=== PATIENT | male | born 1950 | race Caucasian/White ===

== ENCOUNTER 2024-09-02 05:21 | Observation (INO) ==
--- NOTE | 2024-07-29 11:18 | PAT Medication Instructions ---
Medication Instructions Date of Service July 29, 2024 Home Medications atorvastatin 10 mg tablet 10 mg PO HS levothyroxine 25 mcg tablet 25 mcg PO QAM Take morning of surgery With a small sip of water, OTHERWISE NOTHING TO EAT OR DRINK AFTER MIDNIGHT: levothyroxine 25 mcg tablet 25 mcg PO QAM Take evening before surgery atorvastatin 10 mg tablet 10 mg PO HS Other Notes If you have any questions please call us at [phone] or [phone] or [phone] or [phone]
--- NOTE | 2024-08-07 11:36 | Anesthesiology Consultation ---
Date of Service August 07, 2024 Assessment & Plan (1) Encounter for pre-operative examination: Plan - awaiting chest CT and PCP clearance. - workload note sent to [place] PCP who ordered CT for further evaluation of abnormal CXR, patient aware per [place] PCP workload note. Surgeon's office is aware. Chart Review Chart Review: Pending: Refer to Additional Notes / Consult section and Patient seen in Pre Admission Testing Teaching & Discussion Pre-Anesthesia Teaching/Discussion Notes: Instructed NPO after midnight before surgery, except medications with 15 cc of water. Medication instructions provided according to the PAT guidelines. History Surgery Operation Date: 09/02/24 12:00 Proposed Procedures p Left Anterior Total Hip Arthroplasty - Theron Rodriguez, Height/Weight Height: 5 ft 11 in Weight: 86.7 kg Allergies Allergy/AdvReac Type Severity Reaction Status Date / Time No Known Drug Allergies Allergy Unknown . Verified 07/25/24 14:48 Medications Home Medications Medication Instructions Recorded Confirmed Last Taken atorvastatin 10 mg tablet 10 mg PO QPM 07/25/24 08/07/24 Unknown levothyroxine 25 mcg tablet 25 mcg PO QPM 07/25/24 08/07/24 Unknown Past Medical History Medical History (Updated 08/07/24 @ 12:07 by Jordana Soto PA-C) Degenerative joint disease of left hip History of palpitations occasional "missed beats- told not to worry about it" Hx of colonic polyps Hyperlipidemia Hypothyroidism Internal hemorrhoids Patient denies h/o stroke, seizures, heart attack, heart failure, DM, HTN, blood clots/DVTs or blood transfusions. Exercise / Class Metabolic Activity II 4-5 Yardwork/Stairs/Walk up hill (denies chest discomfort or shortness of breath with one flight of stairs) Past Family History Family History Brother Atrial fibrillation Father Family history of diabetes mellitus Other Diabetes No family history of adverse response to anesthesia Denies family history of Ovarian cancer Prostate cancer Myocardial infarction Breast cancer Colorectal cancer Past Surgical History Surgical History (Updated 08/07/24 @ 11:56 by Jordana Soto PA-C) History of herniorrhaphy left inguinal & abdominal-under spinal instead of general anesthesia by patient request History of tooth extraction Hx of colonoscopy with polypectomy S/P vasectomy Past Anesthesia History No Hx of Anesthesia Complications and No Family Hx of Anesthesia Complications History of PONV No Hx of PONV and No Hx of Motion Sickness Social History Smoking Status: Never smoker Do You Dip or Chew Tobacco: No Hx Alcohol Use: Yes Alcohol type: wine and hard liquor alcohol intake frequency: other Alcohol Intake Frequency Comment: once per month Hx Substance Use: No substance use type: does not use Review of Systems Snoring, with h/o waking gasping in the past with resolution; denies witnessed apneas. Patient denies chest pain, shortness of breath, dyspnea on exertion, reflux, fever, chills, cough, wheezing, dizziness, lightheadedness or palpitations. Physical Exam Vital Signs Vitals BP 151/86 P 58 TEMP 98.4 SP02 98% on RA RESP 19 Physical Patient resting comfortably in chair in no acute distress, alert and oriented, responding appropriately throughout visit Full cervical extension range of motion without pain TMD 3.5 finger breadths Mallampati Score 2 Dentition: several caps/crowns, denies chipped or loose teeth, implants or bridges Lungs: normal respiratory effort. Good air movement, clear throughout to auscultation, no adventitious breath sounds Cardiac: regular rate and rhythm, no murmurs noted Carotid arteries: negative bruit bilat Lab Results Anesthesia Preop Results Results Anesthesia Widget: WBC 6.71 K/ul (4.8-10.8) 07/08/24 Hgb 14.4 g/dl (14.0-18.0) 07/08/24 Hct 43.1 % (42.0-52.0) 07/08/24 Plt 305 K/uL (130-400) 07/08/24 Na 140 mmol/L (136-145) 07/08/24 K 4.1 mmol/L (3.5-5.1) 07/08/24 Cl 105 mmol/L (98-107) 07/08/24 CO2 29 mmol/L (21-32) 07/08/24 BUN 16 mg/dl (6-23) 07/08/24 Creat 0.95 mg/dl (0.6-1.4) 07/08/24 Glucose Level 82 mg/dl (70-99(Fasting)) 07/08/24 PT 10.9 Seconds (9.0-12.0) 08/07/24 PTT 30 Seconds (21-31) 08/07/24 INR 1.0 (0.9-1.1) 08/07/24 TSH 4.197 uIu/ml (0.300-4.500) 07/08/24 Blood Type O Positive 08/07/24 Antibody Screen NEGATIVE 08/07/24 Testing Electrocardiogram Date: 08/07/24 Sinus bradycardia with PVCs, rate 59 bpm Chest X-Ray Date: 08/07/24 Large well defined opacity is seen in the right mid and lower lung zone likely represent suspicious lung mass / suspicious lung metastasis with No evidence of air fluid level and No evidence of calcification. Advice: CT Thorax for further radiological evaluation. Other Testing Head MRA 02/29/24 Unremarkable MR angiogram of the brain.
--- OUTSIDE RECORDS SUMMARY | 2024-09-02 05:26 | External Medical Summary | Continuity of Care Document ---
Author Name Unknown Organization [facility] Address [address] [place] [address] [place] [id number] Care Team Providers Care Manager Department Name Role Phone Humera Ugalde Primary Care Physician [phone] Encounter [facility] [id number] Date(s): 08/20/24 - 08/20/24 [facility] [id number], [place] [address]- [phone] Discharge Disposition: Home or Self Care Attending Physician: MD Weiner Michael Referring Physician: NATHANIEL Ugalde Rebecca Linn Allergies, Adverse Reactions, Alerts No Known Medication Allergies Medications doxycycline hyclate 100 mg oral capsule Start: 01/09/17 12:02:00 PM EDT, 2 cap, PO, ONCE, Disp# 2 cap, Refills: 0, Pharmacy: [id number] Start Date: 01/09/17 Status: Ordered Problem List Condition Confirmation Course Effective Dates Status Health St atus Informant Sore throat Confirmed Active Sore throat Confirmed Active Acute pharyngitis Confirmed Active Acute URI Confirmed Active Epistaxis Confirmed Active Tick bite of left shoulder Confirmed Active Social History Social History Type Response Smoking Status Never smoked cigaret gifty Sex Male Sex Representation Male (finding) Patient Care team information Care Team Personnel Name: NATHANIEL Ugalde Rebecca Linn Position: Referring Member Role: Primary Care Provider Address: [address] [place] [address] Care Team Related Persons Name: KARISHMA WOODARD
--- OUTSIDE RECORDS SUMMARY | 2024-09-02 05:26 | External Medical Summary | Continuity of Care Document ---
Author Name Unknown Organization [facility] [address] [place] [address] FIONA VANG [id number] Care Team Providers Care Harvest Contractor Name Role Phone Humera Ugalde Primary Care Physician [phone] Encounter [facility] [id number] Date(s): 08/23/24 - 08/23/24 [facility] [address] [place] [address] [phone] Encounter Diagnosis Other nonspecific abnormal finding of lung field(Discharge Diagnosis) - 08/23/24 Discharge Disposition: Home or Self Care Attending Physician: MD Goode Nicole Paige Referring Physician: MD Weiner Michael Allergies, Adverse Reactions, Alerts No Known Medication Allergies Medications doxycycline hyclate 100 mg oral capsule Start: 01/09/17 12:02:00 PM EDT, 2 cap, PO, ONCE, Disp# 2 cap, Refills: 0, Pharmacy: [id number] Start Date: 01/09/17 Status: Ordered Problem List Condition Confirmation Course Effective Dates Status Health atus Informant Sore throat Confirmed Active Sore throat Confirmed Active Acute pharyngitis Confirmed Active Acute URI Confirmed Active Epistaxis Confirmed Active Tick bite of left shoulder Confirmed Active Diagnosis Diagnosis Type Effective Dates Health Status Clinical Service Informant Other nonspecific abnormal finding of lung field Discharge Diagnosis 08/23/24 Non-Specified Social History Social History Type Response Smoking Status Never smoked cigaret gifty Sex Male Sex Representation Male (finding) Patient Care team information Care Team Personnel Name: NATHANIEL Ugalde Rebecca Linn Position: Referring Member Role: Primary Care Provider Address: [address] [place] [address] Care Team Related Persons Name: KARISHMA WOODARD
[2024-09-02] MEDS: LR 500ML BOLUS, THEN 15ML/HR IV SCH (05:50)
[2024-09-02] MEDS: ACETAMINOPHEN 500 MG TAB PO SCH ×2 (05:52→13:40)
[2024-09-02] MEDS: FAMOTIDINE 20 MG TAB PO SCH (05:52)
[2024-09-02] MEDS: GABAPENTIN 300 MG CAP PO SCH (05:52)
[2024-09-02] MEDS: dexAMETHasone**PF** 10 MG/ML VIAL IV SCH (05:52)
[2024-09-02] MEDS: LR 60ML/HR IV SCH (06:14)
[2024-09-02] MEDS ORDERED: BUPIVACAINE 0.5 % 5 MG/1 ML PF 10ML VIAL ONE (06:23)
--- NOTE | 2024-09-02 06:35 | History & Physical Bridge Note ---
Date of Service September 02, 2024 History & Physical Bridge Note I have examined the patient, reviewed the History & Physical and in the interval since the performance of the History & Physical I have noted the following changes of clinical significance: no changes noted
[2024-09-02] MEDS ORDERED: MIDAZOLAM HCL 1 MG/ML 2ML VIAL ONE (06:38)
[2024-09-02] MEDS ORDERED: fentaNYL citrate PF 100 MCG/2 ML VIAL ONE (06:38)
[2024-09-02] MEDS ORDERED: fentaNYL citrate PF 100 MCG/2 ML VIAL IV PRN (06:44)
[2024-09-02] MEDS ORDERED: ATROPINE SULFATE 0.1 MG/ML 10ML SYR IV PRN (06:44)
[2024-09-02] MEDS ORDERED: ONDANSETRON INJ 2 MG/ML 2 ML VIAL IV PRN ×2 (06:44→09:26)
[2024-09-02] MEDS ORDERED: ePHEDrine sulfate 50 MG/ML AMP IV PRN (06:44)
[2024-09-02] MEDS ORDERED: PROMETHAZINE HCL 6.25 MG in SODIUM CHLORIDE 0.9% 50 ML IV PRN (06:44)
[2024-09-02] MEDS: TRANEXAMIC ACID 1,000 MG **IV Pre-op IV SCH (06:45)
[2024-09-02] MEDS ORDERED: PROPOFOL IV EMULSION 10 MG/ML 20 ML VIAL IV ONE (06:50)
[2024-09-02] MEDS: ceFAZolin 2000MG 2,000 MG/15 ML SYR IV SCH ×2 (07:02→15:57)
[2024-09-02] MEDS: ORTHO JOINT ANESTHETIC ONE (07:46)
[2024-09-02] MEDS: ROPIV 0.5% 246mg, Ketorolac 30mg, EPINEPHrine 0.5mg in NSS INFIL SCH (07:46)
[2024-09-02] MEDS: TRANEXAMIC ACID 1,000 MG **IV Intra-op IV SCH (08:04)
--- NOTE | 2024-09-02 08:07 | Operative Report ---
PG Post Operative Report Pre & Post Diagnosis Operation Date: 09/02/24 07:00 Pre-Op Diagnosis: Left Hip Arthritis Post-Op Diagnosis: Left Hip Arthritis I identified the patient and participated in the time-out.: Yes Procedure Operation Date: 09/02/24 07:00 Actual Procedures p Left Anterior Total Hip Arthroplasty, Uncemented(Left) - Theron Rodriguez DO Surgeon Theron Rodriguez DO Engineering Mathematician Luis Lira PA-C Estimated Blood Loss 100 Findings Consistent with Post-Op Diagnosis Specimens Left femoral head Description of Procedure Implants used I used a ZimmerBiomet total hip arthroplasty system with a size 7.5 standard offset Avenir Complete stem, a 34 mm G7 cup with a 25mm screw, an E1 polyethylene liner, a 40 mm ceramic head with a +3.5 neck. Ortega arrived at the hospital for the above procedure. He was seen in the preoperative holding area and the operative extremity was identified and signed. He was given a spinal anesthetic, a preoperative antibiotic, and TXA. He was then taken back to the operating room and laid on the table in the supine position. He was given basic sedation. The operative leg was secured to a Puristst leg positioner. The hip was then prepped and draped in sterile fashion. A timeout was done and the patient and the operative extremity was properly identified. An anterior approach was used. Dissection was taken down through the fascia and the tensor muscle belly was retracted laterally and the rectus was retracted medially. The circumflex vessels were identified and ligated. The capsule was then incised and tagged for later repair. The femoral neck was then cut and the femoral head was removed. The acetabulum was exposed. Time was spent doing a complete circumferential labral release. Sequential reaming of the acetabulum up to a size 53 reamer was done. Final reamings were done under fluoroscopy to ensure appropriate version. A Biomet 54 mm G7 cup was then impacted into place. A single 25 mm screw was placed. The E1 polyethylene liner was then snapped into place. Surrounding soft tissues were then injected with 100 cc of an orthopedic pain control cocktail. The proximal femur was then exposed. Sequential broaching up to a size 7.5 broach was done. Off that broach a size 40 head with a +3.5 neck was trialed. The hip was reduced and fluoroscopic images showed anatomic alignment of the implants in acceptable length. The broach was removed. The final size 7.5 standard offset Avenir Complete stem was then impacted into place. A ceramic 40 mm head with a +3.5 neck was then impacted onto the stem and the hip was reduced. Final fluoroscopic images showed anatomic alignment of the hip. The capsule was then closed with #1 Vicryl suture. A dilute betadyne lavage was then done for 3 minutes. The joint was then irrigated with normal saline solution. The fascia was closed with #1 PDS suture. Skin was closed with 2-0 Vicryl, tony, and a Silverlon dressing. He was then transferred to a hospital bed and taken to the post anesthesia care unit in stable condition. He tolerated the procedure well. Luis Lira PA-C, was present for the entire procedure. He was critical for patient positioning, prepping, draping, retraction exposure, wound closure and application of sterile dressing. I attest to the content of the Intraoperative Record and any orders documented therein. Any exceptions are noted below.
--- NOTE | 2024-09-02 09:14 | XRay Report ---
XR hip 1V LT w pelvis CLINICAL HISTORY: Postoperative evaluation. COMPARISON: Left hip radiographs August 07, 2024. FINDINGS: Alignment of the total left hip arthroplasty is anatomic. There is no periprosthetic fract ure or unexpected radiopaque foreign body. There are skin tony. IMPRESSION: Expected findings following total left hip arthroplasty. ACT 112: Negative or not required by law. Electronically signed by: Rodolfo Ugarte M.D. 09/02/2024 9:13 AM
[2024-09-02] MEDS ORDERED: bisacodyL 10 MG SUPP PR PRN (09:26)
[2024-09-02] MEDS ORDERED: oxyCODONE HCL IR 5 MG TAB (IMMEDIATE RELEASE) PO PRN (09:26)
[2024-09-02] MEDS ORDERED: HYDROmorphone INJ 0.5 MG/0.5 ML SYR IV PRN (09:26)
[2024-09-02] MEDS ORDERED: NALOXONE HCL 0.4 MG/1 ML VIAL/CARP IV PRN (09:26)
[2024-09-02] MEDS ORDERED: METOCLOPRAMIDE HCL INJ 5 MG/ML 2 ML VIAL IV PRN (09:26)
[2024-09-02] MEDS ORDERED: MAGNESIUM HYDROXIDE SUSP 30 ML UDC PO PRN (09:26)
[2024-09-02] MEDS: DOCUSATE SODIUM 100 MG CAP PO SCH (10:39)
[2024-09-02] MEDS: KETOROLAC TROMETHAMINE 15 MG/ML VIAL IV SCH (10:39)
[2024-09-02] MEDS: MULTIVITAMIN TAB PO SCH (10:39)
--- NOTE | 2024-09-02 14:43 | Fluoroscopy Report ---
FL hip LT 1V CLINICAL HISTORY: LT ANTERIOR HIP COMPARISON STUDY: [Radiograph August 07, 2024. FLUOROSCOPY TIME: 11 seconds. Ka,r: 1.1479 mGy FLUOROSCOPIC IMAGES: 1 FINDINGS: Fluoroscopy was provided during anterior total left hip arthroplasty. Alignment is anatomic . Hardware is intact. No fractures are identified by fluoroscopy. There is an acetabular screw. IMPRESSION: Fluoroscopy provided anterior total left hip arthroplasty. ACT 112: Negative or not required by law. Electronically signed by: Rodolfo Ugarte M.D. 09/02/2024 2:41 PM
--- NOTE | 2024-09-02 14:49 | Anesthesiology Progress Note ---
Date of Service September 02, 2024 Anesthesia Post Procedure Vital Signs Vital Signs: Temp Pulse Pulse Resp BP BP Pulse Ox 09/02/24 12:20 36.7 C 71 16 150/84 H 99 09/02/24 11:20 36.3 C L 64 16 139/83 98 09/02/24 10:22 36.4 C L 75 16 141/89 H 93 09/02/24 09:49 36.7 C 68 16 143/85 H 98 09/02/24 09:20 36.4 C L 63 17 145/79 H 98 09/02/24 09:05 36.4 C L 72 14 135/83 98 09/02/24 08:55 75 22 143/77 H 100 09/02/24 08:45 79 15 134/79 100 09/02/24 08:35 93 H 11 L 130/79 100 09/02/24 08:27 36.3 C L 100 H 16 140/67 98 09/02/24 06:03 36.5 C 79 20 179/81 H 99 O2 Del Method O2 Flow Rate 09/02/24 12:20 Room Air 09/02/24 11:20 Room Air 09/02/24 10:22 Room Air 09/02/24 09:49 Room Air 09/02/24 09:20 Room Air 09/02/24 09:05 Room Air 09/02/24 08:55 Room Air 09/02/24 08:45 Oxymask 4 09/02/24 08:35 Oxymask 6 09/02/24 08:27 Oxymask 10 09/02/24 06:03 Room Air Pain Intensity Left Hip: Pain Intensity: 3 Transfer of Care Handoff Completed per policy Notes Mental Status: alert / awake / arousable and participated in evaluation Patient Amnestic to Procedure: Yes Nausea / Vomiting: adequately controlled Pain: adequately controlled Airway Patency, RR, SpO2: stable & adequate BP & HR: stable & adequate Hydration State: stable & adequate Neuraxial Anesthesia: was administered and sensory block is resolving Anesthetic Complications: no major complications apparent and Pt Satisfied with anesthetic care
[2024-09-02] MEDS: SENNA 8.6 MG TAB PO SCH (21:18)
[2024-09-02] MEDS: ATORVASTATIN 10 MG TAB PO SCH (21:18)
[2024-09-02] MEDS: ASPIRIN 81 MG ECTAB PO SCH (21:18)
[2024-09-02] MEDS: LEVOTHYROXINE SODIUM 25 MCG TABLET PO SCH (21:18)
[2024-09-03 07:36] VITALS: BP 123/79; PULSE 65; RESP 16; TEMP 97.7; O2SAT 99
[2024-09-03] MEDS: dexAMETHasone 4 MG TAB PO SCH (07:45)
--- NOTE | 2024-09-03 12:44 | Orthopedic Progress Note ---
Date of Service September 03, 2024 Assessment & Plan (1) Status post left hip replacement: Assessment: Status post left total hip arthroplasty. Plan: Overall, he is doing quite well today with good pain control left hip. He will work with physical therapy later this morning to work on ambulation and range of motion exercises. He is on aspirin for DVT prophylaxis with the use of HERO hoses. He can be discharged home later this morning pending formal physical therapy evaluation recommendation. Prescription sent to pharmacy with verbal confirmation. His Silverlon should remain in place for 7 days. After 7 days, he may discharge the Silverlon dressing and leave it open to air. He will follow-up with orthopedics in 2 weeks for continued postoperative management or sooner if needed. He verbalized understanding and agrees with this plan. Subjective . Ortega was seen and evaluated this morning resting comfortably no apparent distress. He notes he has good pain control to the left hip. He has been up and out of bed without any significant issues. He has yet to be seen by physical therapy this morning. He denies any concerns with surgical incision site. Denies any active bleeding, discharge, or signs of infection. Denies any other concerns today. Review of Systems All systems reviewed & are unremarkable except as noted in HPI & below. Physical Exam . On physical examination of the left hip, his dressing is clean, dry, and intact with no signs of active bleeding, discharge, or signs of infection. Slight tenderness to palpation adjacent to the surgical site. Leg is out full extension. Limited range of motion secondary to postoperative stiffness soreness. Calf soft nontender to palpation. No guarding present. Intact pl antarflexion dorsiflexion of left ankle. +2 DP and PT pulse. Less than 2- second capillary refill. Normal sensation. Neurovascular intact. Results & Data Results & Data Laboratory Results . Diagnostic Findings . Hip X-Ray 09/02/24 07:00 FL hip LT 1V CLINICAL HISTORY: LT ANTERIOR HIP COMPARISON STUDY: [Radiograph August 07, 2024. FLUOROSCOPY TIME: 11 seconds. fab [place]: 1.1479 mGy FLUOROSCOPIC IMAGES: 1 FINDINGS: Fluoroscopy was provided during anterior total left hip arthroplasty. Alignment is anatomic. Hardware is intact. No fractures are identified by fluoroscopy. There is an acetabular screw. IMPRESSION: Fluoroscopy provided anterior total left hip arthroplasty. ACT 112: Negative or not required by law. Electronically signed by: Rodolfo Ugarte M.D. 09/02/2024 2:41 PM Hip/Pelvis X-Ray 09/02/24 08:29 XR hip 1V LT w pelvis CLINICAL HISTORY: Postoperative evaluation. COMPARISON: Left hip radiographs August 07, 2024. FINDINGS: Alignment of the total left hip arthroplasty is anatomic. There is no periprosthetic fracture or unexpected radiopaque foreign body. There are skin tony. IMPRESSION: Expected findings following total left hip arthroplasty. ACT 112: Negative or not required by law. Electronically signed by: Rodolfo Ugarte M.D. 09/02/2024 9:13 AM PG Care Time/CCT Total # of Minutes Spent Total Time Spent with Patient: Total time spent is greater than 50% in coordination of care (as documented) at patient's floor/unit and/or counseling patient: Coding Level of Care Code 51287 Post Operative Follow-Up Diagnoses Status post left hip replacement Z96.642
--- NOTE | 2024-09-03 12:46 | Discharge Summary ---
Date of Service September 03, 2024 Principal Diagnosis Same as "Discharge Diagnosis" noted below under Discharge Instructions. Discharge Exam . On physical examination of the left hip, his dressing is clean, dry, and intact with no signs of active bleeding, discharge, or signs of infection. Slight tenderness to palpation adjacent to the surgical site. Leg is out full extension. Limited range of motion secondary to postoperative stiffness soreness. Calf soft nontender to palpation. No guarding present. Intact plantarflexion dorsiflexion of left ankle. +2 DP and PT pulse. Less than 2- second capillary refill. Normal sensation. Neurovascular intact. Discharge Data Procedures Performed Operation Date: 09/02/24 07:00 Actual Procedures p Left Anterior Total Hip Arthroplasty, Uncemented(Left) - Theron Rodriguez DO Ordered Studies 09/02/24 07:00 FL hip LT 1V Routine Hospital Course (1) Status post left hip replacement: On September 02, 2024 Ortega arrived at [facility] and underwent a left anterior total hip arthroplasty performed by Dr. Rodriguez with no complications. He had a spinal anesthetic. Postoperatively, who was started on aspirin for DVT prophylaxis and transferred to the general orthopedic floor in stable condition. His hospital course was uneventful. On postoperative day #1, his vital signs were stable and his pain was well-controlled. He participated well with physical therapy working on ambulation and range of motion exercises. He was then discharged home in stable condition. He will follow-up with orthopedics in 2 weeks for postoperative management or sooner if needed. He verbalized understanding and agrees with this plan. PG Care Time/CCT Total # of Minutes Spent Total Time Spent with Patient: Total time spent is greater than 50% in coordination of care (as documented) at patient's floor/unit and/or counseling patient: Discharge Plan Discharge Items Patient Disposition: Home - Home Health Services Reason For Visit: Left Hip Arthritis Discharge Diagnosis: Status post left anterior hip arthroplasty Activity: Per Instructions section Non-emergency contact: Surgeon Call non-emergency contact if: your temperature is above 101.5, your wound has increased redness, your wound has increased drainage and your wound pain has increased Follow-up/Referrals: Humera Ugalde CRNP [Primary Care Provider] - Diet: Regular Addtl Attending Provider Instructions: Activity and Therapy Recommendations: * If you are using [facility] then Physical Therapy will be provided until they feel you are ready to start Outpatient Physical Therapy. If you are not using a Home Health agency then Outpatient Physical Therapy should start about 3-5 days from your day of surgery. Therapy will last about 3-6 weeks * You were shown a series of exercises in the hospital. Do these exercises three times each day including the exercises you were shown in physical therapy. * Get up and walk several times each day.~ For the first four weeks, try not to stand or walk for more than one hour at a time. If you do stand or walk for more than one hour, you will not hurt anything, but your leg will likely swell.~~ * As you feel comfortable, you may change from the walker or crutches to a cane and~then to independent walking. * You may return to previous diet. Medications: * Narcotic You will likely be sent home from the hospital with a prescription for the narcotic pain medication that worked best throughout your stay. * Aspirin Most patients will be required to take Aspirin 81mg twice a day for 6 weeks after surgery. This is obtained [id number] and a prescription is not necessary. * Other medications may be prescribed for specific circumstances. If you have any questions, please call the office at . * Resume previous home medications unless otherwise instructed TEDs/Elastic Stockings: The white elastic stockings help limit swelling and prevent blood clots from forming in your legs. The more you wear them, the more they work. Wear them for six weeks. Dressing Care: You will likely have a purple VAC dressing after surgery. This dressing will keep the incision dry and promote early healing. After about 8 days the batteries will wear out and the VAC will lose suction. Simply remove the dressing at that time and throw everything away, including the small suction machine. Then, you may leave the tony open to air or cover them with a dry dressing so they do not rub on your pants. The tony will be removed at your 2 week follow-up appointment. Showering: You may shower immediately with the purple VAC dressing. Let the shower spray hit your opposite side and slowly pat the plastic dry. Do not soak the dressing. After the dressing is removed you may shower normally with the tony exposed. Let soapy water run over the tony and pat them dry. Things To Watch For: * Drainage from the incision site that occurs more than one week after your surgery. * Increased redness at the incision site. * Fever above 102 degrees Fahrenheit. * Unusual chest pain or shortness of breath. * Call [facility] at [phone] with any of the above problems. Follow-Up Visit: Follow-up with Dr. Rodriguez 2-3 weeks after your day of surgery. An appointment was probably scheduled when you signed-up for surgery in the office. If you have any questions call . Office Instructions: More detailed instructions as well as Frequently Asked Questions were provided in a folder by our office when you signed-up for surgery. Please review these instructions when you get home. If you have any further questions or concerns, please feel free to call the office at [phone]. Pending Studies at Discharge: No Stand-Alone Forms: [facility], Smoking Cessation Medications and DC Order Prescriptions: New cefadroxil 500 mg capsule 500 mg PO BID 10 Days Qty: 20 0RF oxycodone 5 mg tablet 5 mg PO Q6H PRN (Reason: pain) Qty: 30 0RF aspirin 81 mg Tablet,Delayed Release (Dr/Ec) 81 mg PO BID 42 Days Qty: 0 0RF Continued atorvastatin 10 mg tablet 10 mg PO QPM Patient Comments: QPM levothyroxine 25 mcg tablet 25 mcg PO QPM Admission Data Admit Date/Time: 09/02/24 08:29 Attending Provider: Theron Rodriguez Admit Provider: Theron Rodriguez Primary Care Provider: Humera Ugalde Other Interventions: Discharge Summary Assessment (RN) Last Done: 09/03/24 09:01
== END 2024-09-03 10:48 | disposition home health service (06) ==
LOC: 3E 05:21 → ASU 05:21